=== PATIENT | female | born 1985 | race Caucasian/White ===

== ENCOUNTER → 2021-10-14 10:15 | Outpatient (ROUT) | payer OTHER, SELFPAY | PROVIDERS: Visit Provider Family Medicine | DX: Z34.80 Encounter for supervision of other normal pregnancy, unspecified trimester (principal) | CPT/HCPCS: 87081 ==

== ENCOUNTER 2021-11-13 19:40 | Inpatient (IN) | payer OTHER, SELFPAY ==
[2021-11-13 20:52] VITALS: BP 131/62
[2021-11-13] MEDS: DINOPROSTONE VAG (CERVIDIL) 10 MG VAG (20:54)
[2021-11-13 20:57] LABS: Add Manual Diff / Slide Review NO; Basophils Absolute Auto 0 /uL (0-100); Basophils Percent Auto 0.7 % (0-2); Eosinophils Absolute Auto 100 /uL (0-450); Eosinophils Percent Auto 1.1 % (2-4); Hematocrit 35.1 % (36-46); Hemoglobin 12.1 g/dL (12.0-16.0); Lymphocytes Absolute Auto 1700 /uL (1100-4500); Lymphocytes Percent Auto 26.2 % (25-40); Mean Corpuscular HGB Conc 34.5 % (30-36); Mean Corpuscular Volume 89.9 fL (80-100); Monocytes Absolute Auto 700 /uL (0-900); Monocytes Percent Auto 10.7 % (3-14); Neutrophils Absolute Auto 4100 /uL (1500-7000); Neutrophils Percent Auto 61.3 % (50-75); Platelet Count 188 X10^3/uL (150-400); Red Blood Cell Count 3.91 X10^6/uL (4.0-5.2); Red Cell Distribution Width 13.8 % (11.6-14.8); White Blood Cell Count 6.7 X10^3/uL (4.5-11.0)
[2021-11-13 21:10] LABS: COVID19 -Nasal RAPID Negative (Negative)
[2021-11-14] MEDS: ACETAMINOPHEN 325 MG TABLET 650 MG PO (02:51)
[2021-11-14] MEDS: LACTATED RINGERS 1,000 ML 100 ML IV ×2 (03:40→10:08)
--- NOTE | 2021-11-14 08:52 | P.HPOB_ITS ---
OB HPI Date/Time Date of admission: 11/13/21 Date Patient Seen: 11/14/21 Time Patient Seen: 08:52 History of Present Condition Chief complaint: Date of Last Menstrual Period: 02/06/21 Estimated Gestational Age (weeks): 40.1 : 6 Para: 4 Narrative: 35yo LMP 02/06/2021 presents for elective induction. Doing well in general with back pain and scattered contractions on presentation which she does not feel much but are occurring more frequently this morning after cervedil. Getting up and moving around ok. Appetite ok not much nausea just lots of discomfort. care: good care Dating criteria OB: LMP confirmed by 1st trimester US Ultrasounds: abnormal US findings (cleft palate- otherwise normal) Abnormal ultrasound findings: cleft palate - planning f/u with [facility]'s , already had breast milk pump delivered. Obstetrical complications: none Medical complications OB: none Narrative: Term multigravida admitted for elective induction cervedil in overnight, cervis soft and 50% effaced so far will start pitocin presently Prior OB hx: term baby , miscarriage, term baby induced (late) vaginal, term baby induced (distress) vaginal, term baby at home with subsequent hemorrhage and depression. 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 [place] Preadmission Labs Last OB Lab Results: Blood Type A Positive 11/13/21 20:30 Antibody Screen Negative 11/13/21 20:30 Hematocrit 35.1 % (36-46) L 11/13/21 20:30 Hemoglobin 12.1 g/dL (12.0-16.0) 11/13/21 20:30 Genetic Screens: Quad screen: Normal External Labs Blood type OB HPI: A (+) positive -: Antibody screen: negative, HIV: negative, Chlamydia screen: negative (s/p treatment) and Gonorrhea screen: negative -: Rubella: immune PAP: Normal Genetic Screens: Quad screen: Normal Glucose Tolerance Testin hr (155 -home BGs since then have been all fasting around 90-120) Narrative: Did follow with MFM and genetics after initial diagnosis of cleft palate they did not identify any other areas of concern Prior (ies) Past Pregnancies Del. Date GA/Weeks Labor Lgth Wt Sex Route Outcome Anesthesia Place Delv Breastfeed Preg Comp Name 06/06/02 41 3.714 kg Female vaginal live - full term 02/05/08 8 spontaneous 12/15/08 41 3.941 kg Female vaginal live - full term epidur al 08/18/10 39 24 3.402 kg Male vaginal live - full term epidura l 03/05/20 39 3.487 kg Male vaginal live - full term hemorrhage Delivery Date: 08/18/10 Last Updated by: Christian Shah MD induction, pitocin Evaluation Evaluation Baseline heart rate: 140 Variability: Moderate (11-25) monitor accelerations: Present Contraction Frequency (minutes): 5 Uterine Contraction Intensity: Moderate Category of Tracing: Reactive Status: Category l Dilation (cm): 1 Effacement (%): 50 PFSH Social History Smoking Status: Former smoker Meds Home Medications and Allergies Home Medications Medication Instructions Recorded Confirmed Type No Known Home Medications 11/14/21 11/14/21 History Allergies Allergy/AdvReac Type Severity Reaction Status Date / Time No Known Drug Allergies Allergy Verified 11/14/21 02:43 Review of Systems Review of Systems Narrative: all systems reviewed and negative except as otherwise documented in HPI. OB Exam Narrative Exam Narrative: laying bed after eating breakfast HENMT Head: normocephalic and atraumatic Eyes General: appearance normal, both eyes and all related structures Resp Auscultation: clear to auscultation bilaterally Cardio Rate: regular rate Rhythm: regular rhythm Heart Sounds: S1 normal and S2 normal GI Inspection: normal to inspection Palpation: Yes soft and No tender Auscultation: normal bowel sounds External Female Exam: Yes normal external appearance Objective Labs Result Diagrams: 11/13/21 20:30 Labs: Laboratory Results - last 24 hr 11/13/21 11/13/21 11/13/21 20:30 20:30 20:32 WBC 6.7 RBC 3.91 L Hgb 12.1 Hct 35.1 L MCV 89.9 MCH 31.0 MCHC 34.5 RDW 13.8 Plt Count 188 Neut % (Auto) 61.3 Lymph % (Auto) 26.2 [place] % (Auto) 10.7 Eos % (Auto) 1.1 L Baso % (Auto) 0.7 Neut # (Auto) 4100 Lymph # (Auto) 1700 [place] # (Auto) 700 Eos # (Auto) 100 Baso # (Auto) 0 SARS-CoV-2 (PCR) Negative Blood Type A Positive Antibody Screen Negative Assessment and Plan Assessment and Plan Assessment and Plan narrative: #multiparous intrauterine term gestation admit for elective induction cervedil then pitocin GBS negative 10/14/2021 no other meds besides PNVs Epidural desire: I don't know # cleft palate will need support #hx of depression monitor #hx of hemorrhage monitor PCP: Pablo code: full diet: regular
[2021-11-14] MEDS: OXYTOCIN PREMIX 30 UNIT/500 ML PLAST..BAG IV (10:08)
--- NOTE | 2021-11-14 17:54 | P.CONS_ITS ---
History of Present Illness Consult details Date Patient Seen: 11/14/21 Time Patient Seen: 15:40 Chief complaint: Reason for consult: Patient desires transfer of care in labor Narrative: Patient is a 35-year-old 6 para 4014 at 40-,1/7 weeks gestation who received Cervidil overnight for cervical ripening. She is scheduled for induction today due to maternal discomfort and history of rapid labors. She has had 4 uncomplicated deliveries. The last one was delivered in the amniotic sac. She had a hemorrhage and depression. This was complicated by a fetus cleft lip/palate. [facility] She has received Education regarding feeding. Past medical history: Uncomplicated Past surgical history: Uncomplicated Meds Home Medications and Allergies Home Medications Medication Instructions Recorded Confirmed Type No Known Home Medications 11/14/21 11/14/21 History Allergies Allergy/AdvReac Type Severity Reaction Status Date / Time No Known Drug Allergies Allergy Verified 11/14/21 02:43 Exam Narrative Exam Narrative: Generally: Patient walking around in room, mildly uncomfortable with contractions Estimated weight: 7-1/2 lb Extremities: No edema Vaginal exam: 2-3 cm/80% effaced/-1 station Objective Labs Result Diagrams: 11/13/21 20:30 Labs: Laboratory Results - last 24 hr 11/13/21 11/13/21 11/13/21 20:30 20:30 20:32 WBC 6.7 RBC 3.91 L Hgb 12.1 Hct 35.1 L MCV 89.9 MCH 31.0 MCHC 34.5 RDW 13.8 Plt Count 188 Neut % (Auto) 61.3 Lymph % (Auto) 26.2 [place] % (Auto) 10.7 Eos % (Auto) 1.1 L Baso % (Auto) 0.7 Neut # (Auto) 4100 Lymph # (Auto) 1700 [place] # (Auto) 700 Eos # (Auto) 100 Baso # (Auto) 0 SARS-CoV-2 (PCR) Negative Blood Type A Positive Antibody Screen Negative [facility] Tobacco & Substance Use Smoking Status: Former smoker Assessment & Plan Assessment & Plan narrative: Assessment: 35-year-old 6 para 4014 at 40-,1/7 weeks gestation status post Cervidil last night GBS negative 1 hr GTT 155, fasting BS's 90-120 Pitocin at 12 mIu/min Plan: Discussed AROM, but patient declines Continue Pitocin Expectant management to COVID-19 COVID-19 status: Negative Result date/Date tested (Pos, Neg/Pending): 11/13/21 Time Spent With Patient Time with patient: less than 30 minutes Critical Care time: I spent a total of [] minutes of critical care time on this patient's care today; this time is exclusive of procedural time.
--- NOTE | 2021-11-14 18:53 | PM.OBPNLAB ---
Date/Time Date Patient Seen: 11/14/21 Time Patient Seen: 18:53 Pain Control Pain control: tolerating well Pelvic Exam Dilation (cm): 3 Effacement (%): 80 station: -1 Amniotic membrane status: Intact Contractions Contractions on admission: none Monitor mode: External Pitocin rate (mU/min): 16 Contraction frequency (min): 2 Contraction duration (min): 1 Contraction pattern: Regular Contraction intensity: Moderate Status status: Category l Heart Rate Baseline: 120 Monitor Accelerations: Present Monitor Decelerations: Absent Monitor Variability: Moderate Assessment and Plan Assessment: induction ongoing Comments: SROM with copious clear amniotic fluid Expectant management to
[2021-11-15] MEDS: MORPHINE 2 MG/ML INJ IV (00:15)
--- NOTE | 2021-11-15 01:28 | PM.OBPRVD ---
Events: Labor Induction Labor & Delivery Delivery date: 11/15/21 Cervical ripening method: per Cervidil protocol Induction method: per pitocin protocol Delivery augmentation: rupture of membranes Delivery monitor: external FHT and external uterine Route of delivery: Episiotomy description: None L&D Laceration Description: None Estimated blood loss (mL): 200 Anesthesia Type: None Complications: None Narrative: Patient complete and pushing involuntarily. On arrival to the unit the baby was out. Delivery was at 1:08 a.m.. No nuchal cord. Pitocin was given in the IV fluids. The cord was double clamped and cut. Cord bloods were obtained. The placenta delivered intact with a three-vessel cord at 1:18 a.m.. Fundus was massaged to firm. The perineum was inspected and there were no lacerations. Apgars 8 at 1 minute and 9 at 5 minutes. At least cleft lip. Not sure about cleft palate. Mom and stable to recovery. Baby 1: gender: Male Presentation: vertex Placenta delivery description: Spontaneous Cord Vessel Description: 3 Vessels score (1 min): 8 score (5 min): 9 weight: 7 lb 11 oz Plan for aftercare: Routine care
[2021-11-15] MEDS: KETOROLAC 30 MG/ML VIAL IV (04:50)
[2021-11-15 10:47] VITALS: TEMP 37.2
[2021-11-15] MEDS: DOCUSATE 100 MG CAPSULE PO (10:47)
[2021-11-15] MEDS: IBUPROFEN 600 MG TABLET PO ×2 (10:47→18:55)
[2021-11-15] MEDS: ACETAMINOPHEN 325 MG TABLET 650 MG PO ×2 (10:47→18:53)
[2021-11-15] MEDS: PRENATAL VIT,CALC/IRON/FOLIC 1 TABLET 1 TAB PO (10:47)
[2021-11-15 18:53] VITALS: TEMP 36.8
[2021-11-15 18:55] VITALS: TEMP 36.8
[2021-11-15 20:51] VITALS: BP 117/70; PULSE 67; RESP 16; TEMP 36.2
--- NOTE | 2021-12-02 14:41 | P.DS_ITS ---
Discharge Providers Provider Date of admission: 11/13/21 19:40 Discharge Date: 11/15/21 Primary care physician: Christian Shah MD Discharge provider: Litzy Alvarado MD Summary Hospital Course Date Patient Seen: 11/15/21 Time Patient Seen: 07:30 Diagnoses: 40-1/7 weeks gestation Cervidil cervical ripening Pitocin induction of labor Precipitous vaginal delivery cleft lip Hospital Course: Patient is a 35-year-old 6 para 5015 who presented on November 13, 2021 for Cervidil cervical ripening. On November 14, 2021 she received Pitocin for induction of labor. She had an artificial rupture of membranes with clear fluid. Can not she progressed rapidly and had a precipitous vaginal delivery before an epidural could be given. No lacerations. Her course was unremarkable and she was discharged home on November 15, 2021. Peripartum Data Infant Delivery Method: Natural Vaginal Laceration Description: None Episiotomy description: None Procedures: Cervidil cervical ripening Pitocin induction of labor Artificial rupture of membranes complications: none [place] 1: Gender: Male Disposition of : home Status at Discharge Cognitive/behavioral status at discharge: oriented Functional status at discharge: independent ambulation Overall status at discharge: patient is progressing back to baseline Time Spent with Patient Time attestation: Total time spent providing and/or coordinating discharge services: Time spent: Less than 30 minutes Objective Labs Result Diagrams: 11/13/21 20:30 Exam Narrative Exam Narrative: Generally: Patient is sitting up in bed, holding , no acute distress Fundus: Firm at U -1 Extremities: Negative Hom[place], no edema Discharge Plan Discharge Plan Patient Disposition: Home Provider Discharge Comment: Call with fever, chills, or bleeding vaginally more than a pad in an hour Ibuprofen 600 mg every 6 hours as needed Tylenol 650 mg every 6 hours as needed Discharge orders & Medications Prescriptions: No Action No Known Home Medications Follow up/Referrals: Litzy Alvarado MD [Physician] - (Please follow up with Dr. Alvarado on SundayDecember 27 at 3:30 with a 3:15 check in time. If you have any questions/concerns or need to reschedule please call ) Diet/Activity/Treatments Diet: Regular Activity: Nothing in the vagina for 6 weeks Skin/Wound/Dressing Care Report to your healthcare provider any signs of infection, such as:: chills, fever, increased pain and unusual drainage Visit Report/Discharge Packet Instructions: DI for Labor and Delivery, Vaginal , DI for and Nipple Soreness Stand Alone Forms: Discharge: Care Discharge Data Primary Care Provider: Christian Shah
== END 2021-11-15 21:43 | disposition home or self-care (01) | DRG 807 ==
PROVIDERS: Admitting Provider Obstetrics & Gynecology; PCP Family Medicine; Visit Provider Obstetrics & Gynecology
DX: O35.8XX0 Maternal care for other (suspected) fetal abnormality and damage, not applicable or unspecified (principal); Z37.0 Single live birth; Z3A.40 40 weeks gestation of pregnancy; Z20.822 Contact with and (suspected) exposure to COVID-19
CPT/HCPCS: 36415; 59050; 59200; 59409; 85025; 86850; 86900; 86901; 87635; 99222; C9803; G0379; J1885; J2270; J2590